=== PATIENT | female | born 1940 | race Caucasian/White ===

== ENCOUNTER 2016-12-02 10:16 | Emergency (ER) | payer OTHER ==
[~2016-12-02] VITALS: Ht 165.1 cm; Wt 67.3 kg
[2016-12-02 11:39] LABS: EOSINOPHIL (%) 1.5 % (0-5); EOSINOPHIL COUNT 0.1 K/uL (0-0.3); HEMATOCRIT 49.2 % (36.0-46.0); IMMATURE GRANULOCYTE (%) 0.3 % (0.0-0.7); INSTRUMENT ABS NEUTROPHIL CT 3.3 K/uL; MCH 29.2 PG (29.0-34.0); MCHC 31.9 G/DL (30.0-36.0); MCV 91.4 FL (83-99); MEAN PLAT.VOLUME 12.8 uM^3 (9.5-12.4); MONOCYTE (%) 7.1 % (3-12); MONOCYTE COUNT 0.4 K/uL (0-0.8); NEUTROPHIL (%) 56.1 % (45-76); NEUTROPHIL COUNT 3.3 K/uL (1.8-6.4); PLATELET COUNT 189 K/uL (156-360); RBC DIS.WIDTH-SD 47.3 % (39-53); RED BLOOD COUNT 5.38 M/uL (3.80-5.20); WHITE BLOOD COUNT 5.9 K/uL (4.1-10.2)
[2016-12-02 11:50] LABS: D-DIMER ELISA 0.51 mg/L FEU (< 0.57); INTER. NORMALIZED RATIO 1.1; PTT 25.7 (25-32)
[2016-12-02 12:00] LABS: TROP-I INTERPRETATION NEGATIVE; TROPONIN-I < 0.01 ng/mL (0.0-0.30)
[2016-12-02 12:17] LABS: CHLORIDE 104 mEq/L (99-109); POTASSIUM 4.2 mEq/L (3.7-5.4); SODIUM 139 mEq/L (136-147)
[2016-12-02 12:18] LABS: GLUCOSE 123 mg/dL (70-99)
[2016-12-02 12:20] LABS: ANION GAP 13 MEQ/L (2-14)
[2016-12-02 12:22] LABS: GFR ESTIMATE (CALCULATED) > 59 mL/min/
[2016-12-02 12:23] LABS: UREA NITROGEN (BUN) 12 mg/dL (9-23)
[2016-12-02] MEDS ORDERED: XARELTO15 MG PO (13:12)
[2016-12-02 13:35] VITALS: BP 112/77
== END 2016-12-02 13:36 | disposition home or self-care (01) ==
LOC: EME 10:16
PROVIDERS: Emergency Medicine
DX: I48.91 Unspecified atrial fibrillation (principal); I10 Essential (primary) hypertension; Z91.19 Patient's noncompliance with other medical treatment and regimen; Z88.8 Allergy status to other drugs, medicaments and biological substances; Z88.1 Allergy status to other antibiotic agents; Z90.12 Acquired absence of left breast and nipple; Z96.641 Presence of right artificial hip joint; C43.72 Malignant melanoma of left lower limb, including hip
CPT/HCPCS: 71010; 80048; 83880; 84443; 84484; 85025; 85379; 85610; 85730; 93005; 99281; 99284

== ENCOUNTER 2016-12-30 08:45 | Day surgery (SDC) | payer OTHER ==
[~2016-12-30] VITALS: Ht 166.4 cm; Wt 64.9 kg
[~2016-12-30 08:45] MED LIST: AMLODIPINE BESYL5 MG PO; PRILOSEC20 MG PO; VALSARTAN-HCTZ1 EAC4 PO; XARELTO15 MG PO; XARELTO20 MG PO
== END 2016-12-30 11:43 | disposition home or self-care (01) ==
LOC: CATH 08:45
PROC: 5A2204Z Restoration of Cardiac Rhythm, Single (ICD-10-PCS; principal; 2016-12-30)
DX: I48.0 Paroxysmal atrial fibrillation (principal); I11.9 Hypertensive heart disease without heart failure; E11.9 Type 2 diabetes mellitus without complications; E78.2 Mixed hyperlipidemia; Z85.3 Personal history of malignant neoplasm of breast; K21.9 Gastro-esophageal reflux disease without esophagitis; C43.9 Malignant melanoma of skin, unspecified; Z79.01 Long term (current) use of anticoagulants; Z82.49 Family history of ischemic heart disease and other diseases of the circulatory system
CPT/HCPCS: 93005

== ENCOUNTER 2018-01-19 14:07 | Emergency (ER) | payer OTHER ==
[~2018-01-19] VITALS: Ht 165.1 cm; Wt 65.2 kg
[2018-01-19 15:58] LABS: HEMATOCRIT 38.5 % (36.0-46.0); HEMOGLOBIN 13.1 G/DL (11.9-15.5); MCH 31.4 PG (29.0-34.0); MCV 92.3 FL (83-99); PLATELET COUNT 168 K/uL (156-360); RBC DIS.WIDTH-SD 44.4 % (39-53); RED BLOOD COUNT 4.17 M/uL (3.80-5.20); WHITE BLOOD COUNT 7.5 K/uL (4.1-10.2)
[2018-01-19 16:09] LABS: CHLORIDE 101 mEq/L (99-109); SODIUM 139 mEq/L (136-147)
[2018-01-19 16:13] LABS: ALBUMIN 4.1 g/dL (3.2-4.8); TOTAL BILIRUBIN 0.3 mg/dL (0.0-1.0)
[2018-01-19 16:16] LABS: GLUCOSE 105 mg/dL (70-99); TOTAL PROTEIN 7.3 g/dL (6.4-8.3)
[2018-01-19 16:19] LABS: ALKALINE PHOSPHATASE 74 IU/L (3-129)
[2018-01-19 16:20] LABS: GFR ESTIMATE (CALCULATED) 57 mL/min/
[2018-01-19 16:21] LABS: AST (GOT) 26 IU/L (2-34); UREA NITROGEN (BUN) 15 mg/dL (9-23)
[2018-01-19 16:23] LABS: ALT (GPT) 17 IU/L (3-49)
[2018-01-19] MEDS ORDERED: FLAGYL500 MG PO (18:34)
[2018-01-19] MEDS ORDERED: CIPRO500 MG PO (18:34)
[2018-01-19 18:48] VITALS: BP 125/82
== END 2018-01-19 18:50 | disposition home or self-care (01) ==
LOC: RME 14:07 → EME 14:07 → RME 18:50
DX: R10.32 Left lower quadrant pain (principal); R10.31 Right lower quadrant pain; R19.7 Diarrhea, unspecified; E87.1 Hypo-osmolality and hyponatremia; I10 Essential (primary) hypertension; I48.91 Unspecified atrial fibrillation; K21.9 Gastro-esophageal reflux disease without esophagitis; Z79.01 Long term (current) use of anticoagulants; Z88.8 Allergy status to other drugs, medicaments and biological substances
CPT/HCPCS: 74177; 80053; 81003; 85027; 99281; 99284; J7120